=== PATIENT | female | born 1955 | race Caucasian/White ===

== ENCOUNTER 2021-06-18 15:46 | Inpatient (IN) | payer MEDICARE, OTHER ==
[~2021-06-18] VITALS: Ht 165.1 cm; Wt 55.4 kg
[2021-06-18 16:31] LABS: BASOPHILS # (AUTO) 0.1 (0.0-0.1); BASOPHILS % 0.9 % (0.0-1.0); EOSINOPHILS # (AUTO) 0.1 (0.0-0.4); EOSINOPHILS % 0.9 % (0.0-6.0); HEMATOCRIT 35.5 % (34.2-44.1); HEMOGLOBIN 10.6 g/dL (12.0-16.0); LYMPHOCYTES # (AUTO) 2.4 (1.0-3.2); LYMPHOCYTES % 21.4 % (18.0-39.1); MEAN CORPUSCULAR HEMOGLOBIN 26.4 pg (28-32); MEAN CORPUSCULAR HGB CONC 29.9 g/dL (31-35); MEAN CORPUSCULAR VOLUME 88.5 fL (81-99); MONOCYTES # (AUTO) 0.7 (0.2-0.8); MONOCYTES % 6.4 % (4.4-11.3); NEUTROPHILS # (AUTO) 7.9 (2.1-6.9); PLATELET COUNT 381 x10e3/uL (140-360); RED BLOOD COUNT 4.01 x10e6/uL (3.6-5.1); RED CELL DISTRIBUTION WIDTH 15.4 % (11.7-14.4)
[2021-06-18 16:39] LABS: CLARITY,URINE SL CLOUDY (CLEAR); COLOR,URINE AMBER (YELLOW); KETONES,URINE 2+ (NEGATIVE); LEUKOCYTE ESTERASE ,URINE TRACE (NEGATIVE); NITRITE,URINE POSITIVE (NEGATIVE); PROTEIN,URINE DIPSTICK TRACE (NEGATIVE); URINE UROBILINOGEN 0.2 mg/dL (0.2 - 1)
[2021-06-18 16:44] LABS: ALBUMIN 3.5 g/dL (3.5-5.0); ANION GAP 20.6 mmol/L (8-16); CALCIUM 9.4 mg/dL (8.4-10.2); CREATININE, SERUM 0.84 mg/dL (0.57-1.11); POTASSIUM 3.6 mmol/L (3.5-5.1)
[2021-06-18 16:51] LABS: WBC,URINE (MAN) 0-5 /HPF (0-5)
[2021-06-18 16:52] LABS: BACTERIA,URINE MANY /HPF
[2021-06-18] MEDS ORDERED: ONDANSETRON HCL INJ 2MG/ML 2ML 2 MG/ML VIAL IV PRN (17:00)
[2021-06-18] MEDS: PIPERACILLIN/TAZO 4.5 GM 100 ML IV SCH ×2 (17:06→18:25)
[2021-06-18] MEDS: SODIUM CHLORIDE 0.9% 1000ML 1,000 ML IV SCH ×2 (17:07→18:25)
[2021-06-18 17:30] VITALS: BP 155/60
[2021-06-18 18:28] VITALS: BP 155/60
[2021-06-18 20:00] VITALS: BP 139/66
[2021-06-18 22:36] VITALS: BP 139/66
[2021-06-18 22:44] VITALS: BP 139/66
[2021-06-19] VITALS (7 sets, daily range): BP systolic 126–157; BP diastolic 52–69
[2021-06-19] MEDS ORDERED: PIPERACILLIN/TAZOBACTAM 4.5 GM in SODIUM CHLORIDE 0.9% 100 ML IV ONE (03:30)
[2021-06-19 06:24] LABS: BASOPHILS # (AUTO) 0.1 (0.0-0.1); BASOPHILS % 0.8 % (0.0-1.0); EOSINOPHILS # (AUTO) 0.3 (0.0-0.4); HEMOGLOBIN 8.9 g/dL (12.0-16.0); LYMPHOCYTES # (AUTO) 3.8 (1.0-3.2); LYMPHOCYTES % 36.1 % (18.0-39.1); MEAN CORPUSCULAR HEMOGLOBIN 26.9 pg (28-32); MEAN CORPUSCULAR HGB CONC 30.7 g/dL (31-35); MEAN CORPUSCULAR VOLUME 87.6 fL (81-99); MONOCYTES # (AUTO) 0.7 (0.2-0.8); NEUTROPHILS # (AUTO) 5.5 (2.1-6.9); NEUTROPHILS % 52.8 % (38.7-80.0); PLATELET COUNT 296 x10e3/uL (140-360); RED BLOOD COUNT 3.31 x10e6/uL (3.6-5.1); RED CELL DISTRIBUTION WIDTH 15.5 % (11.7-14.4)
[2021-06-19 06:49] LABS: ANION GAP 14.6 mmol/L (8-16); CALCIUM 8.3 mg/dL (8.4-10.2); CREATININE, SERUM 0.65 mg/dL (0.57-1.11); MAGNESIUM 1.5 MG/DL (1.3-2.1); PHOSPHORUS 3.6 MG/DL (2.3-4.7); POTASSIUM 3.6 mmol/L (3.5-5.1)
[2021-06-19] MEDS: SODIUM CHLORIDE 0.9% 1000ML 1,000 ML IV SCH ×3 (07:02→22:00)
[2021-06-19] MEDS ORDERED: DEXTROSE 50% SYRINGE 50 ML IV PRN (18:15)
[2021-06-19] MEDS ORDERED: MAGNESIUM SULFATE 2GM/50ML IV ONE ×2 (18:30→22:00)
[2021-06-19] MEDS ORDERED: REGLAN10 MG PO (18:37)
[2021-06-19] MEDS ORDERED: TOPROL XL50 MG PO (18:37)
[2021-06-19] MEDS: INSULIN LISPRO 100 UNIT/1 ML 3ML VIAL SQ SCH (20:09)
[2021-06-19] MEDS: AZTREONAM 1 GM/NS 50 ML 50 ML IV SCH (21:35)
[2021-06-19] MEDS ORDERED: LEVOTHYROXINE50 MCG PO (21:51)
[2021-06-19] MEDS ORDERED: ATORVASTATIN CA20 MG PO (21:55)
[2021-06-19] MEDS ORDERED: PROTONIX20 MG PO (21:56)
[2021-06-19] MEDS ORDERED: BUPROPION HCL100 MG PO (21:59)
[2021-06-19] MEDS ORDERED: FAMOTIDINE20 MG PO (21:59)
[2021-06-20] VITALS (10 sets, daily range): BP systolic 139–192; BP diastolic 54–85
[2021-06-20] MEDS: SODIUM CHLORIDE 0.9% 1000ML 1,000 ML IV SCH ×2 (05:32→16:37)
[2021-06-20 06:35] LABS: BASOPHILS # (AUTO) 0.1 (0.0-0.1); EOSINOPHILS # (AUTO) 0.4 (0.0-0.4); EOSINOPHILS % 3.9 % (0.0-6.0); HEMATOCRIT 35.1 % (34.2-44.1); HEMOGLOBIN 10.3 g/dL (12.0-16.0); LYMPHOCYTES # (AUTO) 3.9 (1.0-3.2); LYMPHOCYTES % 37.9 % (18.0-39.1); MEAN CORPUSCULAR HEMOGLOBIN 26.6 pg (28-32); MEAN CORPUSCULAR HGB CONC 29.3 g/dL (31-35); MEAN CORPUSCULAR VOLUME 90.7 fL (81-99); MONOCYTES # (AUTO) 0.9 (0.2-0.8); MONOCYTES % 8.9 % (4.4-11.3); NEUTROPHILS # (AUTO) 4.9 (2.1-6.9); PLATELET COUNT 318 x10e3/uL (140-360); RED BLOOD COUNT 3.87 x10e6/uL (3.6-5.1); RED CELL DISTRIBUTION WIDTH 15.7 % (11.7-14.4)
[2021-06-20 06:50] LABS: CHOL/HDL RATIO 3.7 (3.0-3.6); MAGNESIUM 1.9 MG/DL (1.3-2.1)
[2021-06-20] MEDS: AZTREONAM 1 GM/NS 50 ML 50 ML IV SCH ×2 (06:51→18:55)
[2021-06-20] MEDS: INSULIN LISPRO 100 UNIT/1 ML 3ML VIAL SQ SCH ×4 (07:30→20:21)
[2021-06-20 08:08] LABS: THYROID STIMULATING HORMONE 1.112 uIU/mL (0.350-4.940)
[2021-06-20] MEDS: LEVOTHYROXINE SODIUM 50 MCG TAB PO SCH (12:11)
[2021-06-20] MEDS: METOCLOPRAMIDE HCL 10 MG/2ML VIAL IV SCH ×3 (13:37→20:21)
[2021-06-20] MEDS: BUPROPION HCL 75 MG TAB PO SCH (16:36)
[2021-06-20] MEDS: METOPROLOL SUCCINATE 50 MG TAB XL PO SCH (20:22)
[2021-06-21] VITALS (10 sets, daily range): BP systolic 135–182; BP diastolic 57–70
[2021-06-21] MEDS: LEVOTHYROXINE SODIUM 50 MCG TAB PO SCH (05:06)
[2021-06-21] MEDS: SODIUM CHLORIDE 0.9% 1000ML 1,000 ML IV SCH (05:24)
[2021-06-21] MEDS: AZTREONAM 1 GM/NS 50 ML 50 ML IV SCH ×2 (07:12→20:54)
[2021-06-21] MEDS: INSULIN LISPRO 100 UNIT/1 ML 3ML VIAL SQ SCH ×4 (07:30→20:57)
[2021-06-21] MEDS: METOCLOPRAMIDE HCL 10 MG/2ML VIAL IV SCH ×4 (09:08→20:54)
[2021-06-21] MEDS: BUPROPION HCL 75 MG TAB PO SCH ×2 (09:09→16:52)
[2021-06-21] MEDS: METOPROLOL SUCCINATE 50 MG TAB XL PO SCH (20:57)
[2021-06-22] VITALS (10 sets, daily range): BP systolic 122–174; BP diastolic 54–69
[2021-06-22] MEDS: LEVOTHYROXINE SODIUM 50 MCG TAB PO SCH (05:55)
[2021-06-22] MEDS: INSULIN LISPRO 100 UNIT/1 ML 3ML VIAL SQ SCH ×4 (07:26→20:34)
[2021-06-22] MEDS: AZTREONAM 1 GM/NS 50 ML 50 ML IV SCH ×2 (07:52→20:34)
[2021-06-22] MEDS: METOCLOPRAMIDE HCL 10 MG/2ML VIAL IV SCH ×4 (07:52→20:34)
[2021-06-22] MEDS: BUPROPION HCL 75 MG TAB PO SCH ×2 (08:35→17:24)
[2021-06-22] MEDS ORDERED: LIDOCAINE HCL 1% LOCAL INJ 20 ML VIAL ONE (09:11)
[2021-06-22] MEDS ORDERED: EPHEDRINE SULFATE INJ 50 MG/ML VIAL ONE (12:57)
[2021-06-22] MEDS ORDERED: LIDOCAINE HCL 2% LOCAL INJ 5 ML SDV VIAL INJ ONE (12:57)
[2021-06-22] MEDS ORDERED: ROCURONIUM BROMIDE 10 MG/ML 5ML VIAL IV ONE (12:57)
[2021-06-22] MEDS ORDERED: KETOROLAC TROMETHAMINE 30 MG/ML VIAL ONE (12:57)
[2021-06-22] MEDS ORDERED: DEXAMETHASONE SOD PHOS INJ 4 MG/ML SDV ONE (12:57)
[2021-06-22] MEDS ORDERED: PROPOFOL IV EMULSION 10 MG/ML 20 ML VIAL ONE (12:57)
[2021-06-22] MEDS ORDERED: SUCCINYLCHOLINE CHLORIDE 20 MG/ML 10ML VIAL ONE (12:57)
[2021-06-22] MEDS ORDERED: SEVOFLURANE INHAL SOLN 250 ML PEN BTL ONE (12:57)
[2021-06-22] MEDS ORDERED: POVIDONE IODINE 0.05% 0.05 % ML PO ONE (12:57)
[2021-06-22] MEDS ORDERED: ONDANSETRON HCL INJ 2MG/ML 2ML 2 MG/ML VIAL ONE (12:57)
[2021-06-22] MEDS: Morphine 2mg Syringe 2 MG/ML SYR IV PRN ×2 (15:24→20:40)
[2021-06-22] MEDS ORDERED: MIDAZOLAM HCL 2 MG/2 ML VIAL ONE (15:35)
[2021-06-22] MEDS ORDERED: FENTANYL CITRATE/PF 100MCG/2 ML INJ ONE (15:35)
[2021-06-22] MEDS: METOPROLOL SUCCINATE 50 MG TAB XL PO SCH (20:34)
[2021-06-23] VITALS (8 sets, daily range): BP systolic 147–169; BP diastolic 55–65
[2021-06-23] MEDS: LEVOTHYROXINE SODIUM 50 MCG TAB PO SCH (06:01)
[2021-06-23] MEDS: AZTREONAM 1 GM/NS 50 ML 50 ML IV SCH ×2 (07:04→18:00)
[2021-06-23] MEDS: INSULIN LISPRO 100 UNIT/1 ML 3ML VIAL SQ SCH ×4 (07:30→20:26)
[2021-06-23] MEDS: METOCLOPRAMIDE HCL 10 MG/2ML VIAL IV SCH ×4 (08:30→20:26)
[2021-06-23] MEDS: BUPROPION HCL 75 MG TAB PO SCH ×2 (10:30→17:16)
[2021-06-23] MEDS: HYDROCODONE/APAP 5MG-325MG TAB PO PRN ×2 (10:45→17:10)
[2021-06-23] MEDS ORDERED: AMITRIPTYLINE H10 MG PO (17:17)
[2021-06-23] MEDS: METOPROLOL SUCCINATE 50 MG TAB XL PO SCH (20:26)
[2021-06-23] MEDS: ONDANSETRON HCL INJ 2MG/ML 2ML 2 MG/ML VIAL IV PRN (22:52)
[2021-06-24] VITALS (7 sets, daily range): BP systolic 163–182; BP diastolic 57–77
[2021-06-24] MEDS: ONDANSETRON HCL INJ 2MG/ML 2ML 2 MG/ML VIAL IV PRN (02:50)
[2021-06-24] MEDS: LEVOTHYROXINE SODIUM 50 MCG TAB PO SCH (06:06)
[2021-06-24] MEDS: AZTREONAM 1 GM/NS 50 ML 50 ML IV SCH ×2 (06:24→19:26)
[2021-06-24] MEDS: METOCLOPRAMIDE HCL 10 MG/2ML VIAL IV SCH ×4 (07:30→20:27)
[2021-06-24] MEDS: INSULIN LISPRO 100 UNIT/1 ML 3ML VIAL SQ SCH ×3 (07:30→20:26)
[2021-06-24] MEDS: BUPROPION HCL 75 MG TAB PO SCH ×2 (09:00→17:00)
[2021-06-24] MEDS: VALSARTAN 160 MG TAB PO SCH (10:15)
[2021-06-24 11:11] LABS: BASOPHILS # (AUTO) 0.1 (0.0-0.1); BASOPHILS % 0.4 % (0.0-1.0); HEMATOCRIT 31.5 % (34.2-44.1); HEMOGLOBIN 9.5 g/dL (12.0-16.0); LYMPHOCYTES # (AUTO) 1.4 (1.0-3.2); LYMPHOCYTES % 9.6 % (18.0-39.1); MEAN CORPUSCULAR HEMOGLOBIN 26.9 pg (28-32); MEAN CORPUSCULAR HGB CONC 30.2 g/dL (31-35); MEAN CORPUSCULAR VOLUME 89.2 fL (81-99); MONOCYTES # (AUTO) 1.1 (0.2-0.8); MONOCYTES % 7.2 % (4.4-11.3); NEUTROPHILS # (AUTO) 12.4 (2.1-6.9); NEUTROPHILS % 82.4 % (38.7-80.0); PLATELET COUNT 325 x10e3/uL (140-360); RED BLOOD COUNT 3.53 x10e6/uL (3.6-5.1); RED CELL DISTRIBUTION WIDTH 15.9 % (11.7-14.4)
[2021-06-24 11:34] LABS: ANION GAP 15.2 mmol/L (8-16); CALCIUM 8.8 mg/dL (8.4-10.2); CREATININE, SERUM 0.66 mg/dL (0.57-1.11); MAGNESIUM 1.5 MG/DL (1.3-2.1); PHOSPHORUS 2.6 MG/DL (2.3-4.7); POTASSIUM 3.2 mmol/L (3.5-5.1)
[2021-06-24] MEDS ORDERED: ACETAMINOPHEN 325 MG TAB PO PRN (20:15)
[2021-06-24] MEDS: METOPROLOL SUCCINATE 50 MG TAB XL PO SCH (20:27)
[2021-06-24] MEDS ORDERED: AMITRIPTYLINE HCL 10 MG TAB PO SCH (21:00)
[2021-06-25 00:26] VITALS: BP 169/86
[2021-06-25 05:37] VITALS: BP 151/69
[2021-06-25] MEDS: LEVOTHYROXINE SODIUM 50 MCG TAB PO SCH (06:12)
[2021-06-25] MEDS: METOCLOPRAMIDE HCL 10 MG/2ML VIAL IV SCH ×3 (07:51→16:11)
[2021-06-25] MEDS: AZTREONAM 1 GM/NS 50 ML 50 ML IV SCH (08:21)
[2021-06-25] MEDS: VALSARTAN 160 MG TAB PO SCH (08:26)
[2021-06-25] MEDS: BUPROPION HCL 75 MG TAB PO SCH (08:26)
[2021-06-25 09:01] VITALS: BP 163/56
[2021-06-25] MEDS: INSULIN LISPRO 100 UNIT/1 ML 3ML VIAL SQ SCH ×3 (09:43→16:09)
[2021-06-25 12:07] VITALS: BP 157/65
[2021-06-25 15:56] VITALS: BP 180/67
== END 2021-06-25 17:00 | disposition home or self-care (01) | DRG 73 ==
LOC: ER 15:52 → ERHOLD 16:52 → MED/SURG2 17:29
PROVIDERS: ADMIT Internal Medicine; ATTEND Internal Medicine
PROC: 0DHA4UZ Insertion of Feeding Device into Jejunum, Percutaneous Endoscopic Approach (ICD-10-PCS; principal; 2021-06-22 10:00)
DX: E11.43 Type 2 diabetes mellitus with diabetic autonomic (poly)neuropathy (principal); E43 Unspecified severe protein-calorie malnutrition; N39.0 Urinary tract infection, site not specified; K31.84 Gastroparesis; R62.7 Adult failure to thrive; I10 Essential (primary) hypertension; I25.2 Old myocardial infarction; K21.9 Gastro-esophageal reflux disease without esophagitis; E78.5 Hyperlipidemia, unspecified; Z90.49 Acquired absence of other specified parts of digestive tract; Z88.8 Allergy status to other drugs, medicaments and biological substances; Z88.1 Allergy status to other antibiotic agents; Z91.040 Latex allergy status; Z91.041 Radiographic dye allergy status; Z68.20 Body mass index [BMI] 20.0-20.9, adult; R63.0 Anorexia; D64.9 Anemia, unspecified; B96.20 Unspecified Escherichia coli [E. coli] as the cause of diseases classified elsewhere; R53.81 Other malaise; Z20.822 Contact with and (suspected) exposure to COVID-19
CPT/HCPCS: 36415; 71045; 74176; 80048; 80053; 80061; 81001; 82607; 82746; 82948; 83540; 83605; 83735; 84100; 84443; 84466; 84484; 85025; 87040; 87086; 87186; 93005; 99284; J0330; J1100; J1885; J2001; J2250; J2270; J2405; J2543; J2765; J3010; J3475; J7030; J7050; U0002